=== PATIENT | male | born 1980 | race Caucasian/White ===

== ENCOUNTER 2020-07-18 00:18 | Emergency (ER) | payer SELFPAY ==
[~2020-07-18] VITALS: Ht 165.1 cm; Wt 88.5 kg
[2020-07-18 00:36] VITALS: BP 131/86
--- NOTE | 2020-07-18 01:22 | NUR ---
PT SEEN AND EVALUATED BY ITZEL. NO NURSING CARE PROVIDED
== END 2020-07-18 01:45 | disposition home or self-care (01) ==
LOC: MED 00:18
DX: G47.00 Insomnia, unspecified (principal)
CPT/HCPCS: 99283